=== PATIENT | female | born 1960 | race Caucasian/White ===

== ENCOUNTER 2024-11-22 06:07 | Emergency (ER) | payer OTHER ==
[2024-11-22] MEDS ORDERED: Ibuprofen 600 MG TAB ONE (06:54)
== END 2024-11-22 06:53 | disposition home or self-care (01) ==
LOC: MADERS 06:07
DX: J02.9 Acute pharyngitis, unspecified (principal); F17.210 Nicotine dependence, cigarettes, uncomplicated
CPT/HCPCS: 87081; 87426; 87430; 99283